=== PATIENT | female | born 1965 | race Caucasian/White ===

== ENCOUNTER 2016-11-08 15:22 | Emergency (ER) | payer MEDICAID, OTHER ==
[~2016-11-08] VITALS: Ht 157.5 cm; Wt 61.4 kg
[2016-11-08 15:38] VITALS: Ht 157.5 cm; Wt 61.4 kg
[2016-11-08] MEDS ORDERED: SOD CHLORIDE 0.9% 1,000 ML IV ONE (16:00)
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
== END 2016-11-08 16:45 | disposition left against medical advice (07) ==
LOC: E/R 15:22
DX: T67.5XXA Heat exhaustion, unspecified, initial encounter (principal)
CPT/HCPCS: 93005; J7030; Z7502